=== PATIENT | male | born 1935 | race Caucasian/White ===

== ENCOUNTER 2017-04-16 18:30 | Inpatient (IN) | payer MEDICARE ==
[~2017-04-16] VITALS: Ht 175.3 cm; Wt 115.0 kg
--- NOTE | ~2017-04-16 | ECH ---
Transthoracic Echocardiography Report (TTE) Demographics Patient Name HALLIE GRACE SR Date of Study 04/18/2017 Patient Number [id number] Visit Number [id number] Date of 1935 Room Number 408 Accession Number [id number] Gender Male Age 81 year(s) Referring Willie Barcenas Break Off Worker Deborah Lr [facility] Physician Physician Interpreting Seun Blankenship Corporate Manager Physician Supervising Ordering Physician Sam Bailey MD/MLP Nurse Stress Child & Adolescent Psychiatrist Conclusions Contractility Score Summary Normal Left Ventricular contractility was noted. Summary Technically fair exam. The estimated left ventricular ejection fraction is 60-65%. Mild concentric left ventricular hypertrophy. Mildly dilated right ventricle with normal function. Mild-moderate mitral regurgitation by color Doppler. There is trivial aortic regurgitation by color Doppler. The ascending aorta appears mildly dilated. The maximum diameter measures 4.1 cm. Recommendation The patient was given the results of the exam during their hospital stay. Procedure Type of Study TTE procedure:Echo Complete SF. Procedure Date Date: 04/18/2017 Start: 10:02 AM Technical Quality: Adequate visualization Indications:Chest pain, Atrial fibrillation, Congestive heart failure and Coronary artery disease. Appropriate Use Criteria: 9 Height: 69 inches Weight: 253 pounds BSA: 2.28 m Rhythm: Atrial fibrillation HR: 84 bpm BP: 108/44 mmHg M-Mode/2D Measurements LV Diastolic Dimension: 5.39 cm LV Systolic Dimension: 3.08 cm LV Septum Diastolic: 1.19 cm LV PW Diastolic: 1.16 cm AO Root Dimension: 2.93 cm Cardiac Output: 6.74 l/min LA Dimension: 4.45 cm Cardiac Index: 2.96 l/min*m RV Diastolic Dimension: 3.58 cm LA volume index: 31 ml/m LVOT: 2.03 cm LVOT VTI: 24.8 cm RV Base: 4.47 cm LV Stroke volume: 80.23 ml RV Length: 6.69 cm LV Stroke volume index: 35.19 ml/m TAPSE: 3.1 cm Doppler Measurements AV Peak Velocity: 1.08 m/s MV Peak E-Wave: 1.24 m/s AV Peak Gradient: 4.67 mmHg AV Mean Gradient: 2.5 mmHg LVOT Peak Velocity: 1.15 m/s AV Area (Continuity):3.4 cm PV Peak Velocity: 1.04 m/s TR Velocity:2.35 m/s PV Peak Gradient: 4.33 mmHg TR Gradient:22.03 mmHg Estimated PASP: 25.03 mmHg Estimated RAP:3 mmHg Estimated RVSP: 25 mmHg RA Area: 21.04 cm Findings Left Ventricle The left ventricle is normal in size . Mild concentric left ventricular hypertrophy. Diastolic function indeterminate due to patient's arrhythmia. Right Ventricle Normal right ventricle structure and function. Mildly dilated right ventricle with normal function. Left Atrium Normal left atrial size. Right Atrium The right atrium is mildly dilated. Mitral Valve Mild-moderate mitral regurgitation by color Doppler. Normal mitral valve structure and function. Aortic Valve The aortic valve is mildly sclerotic. There is trivial aortic regurgitation by color Doppler. Tricuspid Valve Normal tricuspid valve structure and function. Mild tricuspid regurgitation by color Doppler. Pulmonic Valve Normal pulmonic valve structure and function. Pericardial Effusion No evidence of pericardial effusion. Miscellaneous The ascending aorta appears mildly dilated. The maximum diameter measures 4.1 cm. Pleural Effusion No evidence of pleural effusion. Contractility Score LV regional wall motion:(0-Non visualized 1-Normal 2-Hypokinesis 3-Akinesis 4-Dyskinesis 5-Aneurysm) Signature
--- NOTE | ~2017-04-16 | HP ---
ADMIT: 04/16/2017 RM/LOC: 408 [facility] MR#: [id number] [address] [place], [place] [address] HALLIE GRACE [address] [place] [address] History and Physical SEX: M AGE: 81 : 1935 DATE OF SERVICE: CHIEF COMPLAINT: Chest pain. HISTORY OF PRESENT ILLNESS: The patient is very pleasant 81-year-old gentleman, who has a past medical history of coronary artery disease, status post PCI at [facility] in the early ; history of recurrent stroke, on chronic anticoagulation; diabetes, who presents to [facility] emergency room with complaints of chest pain. The patient notes that he had actually been in to [facility] earlier this last week for a not regular INR, and was not feeling well, and they did an EKG and found that he was in atrial fibrillation with good rate control, since he was already anticoagulated, they sent him home. The patient noted some episodes of chest discomfort on , pretty severe, 8/10 at in nature, left chest maybe a little bit into his left armpit. He was not short of breath, nauseated, or diaphoretic. This happened at rest, and really had just may have been feeling a little under the weather, but otherwise he had no further chest pain until Tuesday when he had a longer symptom and with recurrent symptomatology of this. He was brought into the emergency room where the episode of pain did not go away until after he received nitroglycerin. The patient notes he has not had any pain since that time. He notes his exercise tolerance is not great, but it is more than anything secondary to his knee bothering him. He has to use a cane to get around. He notes he has not had a stress test or echocardiogram in quite some time, although he follows with Payton Carvalho at [facility]. The patient notes no recent medication changes and has been taking everything as directed. PAST MEDICAL HISTORY: 1. 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 2. Coronary artery disease, status post stenting per the patient in approximately 1992 or 1993 [facility]. 3. Obesity. 4. Diabetes mellitus type 2. 5. Hyperlipidemia. 6. Hypertension. 7. New onset atrial fibrillation, diagnosed March 2017. 8. GERD. 9. History of diabetic retinopathy. 10.History of hearing loss. 11.History of cataract. 12.BPH. 13.Depression with recent grief disturbance. 14.Tinnitus. ALLERGIES: NO KNOWN MEDICAL ALLERGIES. MEDICATIONS: Home medications include: 1. Atorvastatin. ADMIT: 04/16/2017 RM/LOC: 408 [facility] MR#: [id number] [address] [address] HALLIE GRACE [facility] [address] [address] History and Physical SEX: M AGE: 81 : 1935 2. Fish oil. 3. Enalapril. 4. Gabapentin. 5. Imdur. 6. Omeprazole. 7. Potassium. 8. Terazosin. 9. Trospium. 10.Carvedilol. 11.Vitamin D. 12.Coumadin. 13.Plavix. 14.NPH insulin. 15.Lasix. SOCIAL HISTORY: He is recently . Currently, living with family members. Current nonsmoker and nondrinker. FAMILY HISTORY: Noncontributory. REVIEW OF SYSTEMS: As noted above. All other systems are reviewed and are negative. PHYSICAL EXAMINATION: VITAL SIGNS: 99.1, 64, 18, 108/44, 99% on room air. LABORATORY DATA: Troponin was less than 0.015 on three separate sets. Hemoglobin 14.9, white count 6.5, and 159,000 platelets. Sodium is 141, potassium 4.4, BUN is 24, creatinine 1.3, bicarb is 27, chloride is 106. His blood sugar is 191. BNP was 2883. Chest x-ray shows no obvious airspace disease. EKG looks to be atrial fibrillation at 74 beats per minute. T-wave inversions noted in V1. Questionable right bundle. No acute ST or T-wave segment changes are noted. ASSESSMENT AND PLAN: 1. Chest pain, resolved. 2. History of known coronary disease, status post PCI, approximately in the early 90s. 3. Atrial fibrillation, overall new onset. 4. Chronic anticoagulation due to multiple cryptogenic strokes. 5. Diabetes mellitus type 2. ADMIT: 04/16/2017 RM/LOC: 408 [facility] MR#: [id number] [address] [address] HALLIE GRACE [address] [place] [address] History and Physical SEX: M AGE: 81 : 1935 6. Hyperlipidemia. 7. Hypertension. 8. Obesity. Overall right now, the patient is chest pain-free. Symptoms are certainly concerning based on the way he mentions that his exercise tolerance is overall limited with his prior strokes and knee problems. New onset atrial fibrillation is interesting, he needs an echo. His thyroid is pending. Also, probably needs an ischemic workup given the chest pain and his history of coronary disease. We will try to get that echocardiogram ordered. We will have [facility] stop to see the patient as he is an established patient with them. We will get him started on most of his home medications and follow him closely here as an inpatient. Leo Vargas MD/ morgan JOB #: [id number] CC: Lennox Tapia, Attending Physician Lennox Tapia, Family Physician
--- NOTE | 2017-04-17 01:40 | ER ---
ADMIT: 04/16/2017 RM/LOC: 408 [facility] MR#: [id number] [address] [place], [place] [address] HALLIE GRACE [address] [place] [address] Emergency Room Report SEX: M AGE: 81 : 1935 DATE: 04/16/2017 See T-sheet for complete H and P. ADDENDUM: An 81-year-old gentleman comes in complaining of left-sided chest pain that began 30 to 40 minutes prior to arrival. It is on the left side of his chest and into his axilla on the left side. He was sitting at that time when it began. He denies any shortness of breath, diaphoresis, or nausea with this. It is still present when he presents to the ER, but it is improving. He was seen in the clinic yesterday apparently by Dr. Tapia and was found to be in atrial fibrillation. The reason he went into the clinic visit is because he was having a little bit of pain similar to this but not as severe as the other day. Past medical history, he does have a history of newly diagnosed atrial fibrillation. He was already anticoagulated on Plavix and Coumadin for numerous CVAs and TIAs in the past. He has had a stent placed but that was back in 1999. His physical exam was unremarkable. See T-sheet for complete exam. EKG showed atrial fibrillation at a rate of 45 and on the monitor, he was mostly in the 60s and 70s while in the ER. His lab results shows that he had normal set of cardiac enzymes with a BNP is 2883. His electrolytes were normal. His CBC was normal and he was therapeutic at 2.32 on his INR. He did get a nitroglycerin and had relief of his pain and remained chest pain-free in the ER. I spoke to Dr. Vargas, who is on for the patient's primary care physician, who graciously agrees to bring the patient in for further workup of his chest pain. Layton Melgar MD/ morgan JOB #: [id number] CC: Lennox Tapia MD, Attending Physician Lennox Tapia MD, Family Physician
--- NOTE | 2017-04-19 06:48 | CO ---
ADMIT: 04/16/2017 RM/LOC: 408 [facility] MR#: [id number] [facility]#: [id number] [address] [place], [place] [address] HALLIE GRACE [address] [place] [address] Consultation SEX: M AGE: 81 : 1935 DATE OF CONSULTATION: 04/17/2017 ATTENDING PHYSICIAN: Lennox Tapia CONSULTING PHYSICIAN: Krzysztof Kohli MD REASON FOR CONSULTATION: Left axilla pain. HISTORY OF PRESENT ILLNESS: Hallie is a pleasant 81-year-old male, who has a history of LAD stent in November of 1999. He does not remember what type of symptoms he was having at that time. He states that he has had a twice a week INRs for the last 25 years given his history of stroke, he was placed on Coumadin at that time, and because of his difficult to control INRs, he has had to have it checked twice a week for that entire time. He states that on , he was going in to get his INR. He said that morning he had about 20 minutes of a sharp pain in his left axilla. He denies any shortness of breath or diaphoresis with it. He states it resolved on its own. He said he went in for his blood check and told the nurse that Dr. Tapia did talk to him and told him that he should go to the emergency room if he has recurrent pain. Yesterday afternoon, he said he had another episode of 15 to 20 minutes of this sharp left axilla pain. He says nothing seems to bring it on. He says initially nitroglycerin helped and then he did get some Maalox which also helped with the pain. He states he has continued to have intermittent pain since admission. He has had negative cardiac enzymes, and his EKG shows no ischemic changes. PAST MEDICAL HISTORY: 1. History for recently diagnosed atrial fibrillation. He has been on Coumadin long-term for his history of strokes. 2. History of multiple strokes in the s, so he has been on twice a week INR since that time. 3. History of coronary disease, status post stenting of his LAD in 1999. 4. History of peripheral vascular disease, status post stenting [place] [address] Adan. 5. History of diabetes. 6. History of hypertension. 7. History of hypercholesteremia. 8. History of obesity. PAST SURGICAL HISTORY: 1. History of appendectomy in 1955. 2. History of knee surgery in 1969. 3. History of ankle surgery in 1974. 4. History of stenting of his left SFA in 2006. ALLERGIES: NO KNOWN DRUG ALLERGIES. MEDICATIONS: 1. Furosemide 20 mg daily. ADMIT: 04/16/2017 RM/LOC: [address] [place] [address] MR#: [id number] [address] [address] HALLIE GRACE [facility] [address], [place] [address] Consultation SEX: M AGE: 81 : 1935 2. Insulin 42 units at bedtime, NPH at night and 44 units in the morning. 3. Plavix 75 mg daily. 4. Coumadin daily. 5. Vitamin D daily. 6. Carvedilol 25 mg twice a day. 7. Trospium 20 mg twice daily. 8. Terazosin 5 mg daily. 9. Potassium 10 mEq daily. 10.Omeprazole 20 mg daily. 11.Isosorbide mononitrate 60 mg daily. 12.Hypromellose twice daily p.r.n. 13.Gabapentin 300mg three tabs at bedtime. 14.Gabapentin 300 mg one capsule in the morning and one at noon. 15.Enalapril 5 mg daily. 16.Fish oil 1000 mg daily. 17.Atorvastatin 40 mg at bedtime. SOCIAL HISTORY: He lives with his daughter in [place]. Denies any smoking or alcohol use. FAMILY HISTORY: There is no family history of coronary artery disease. REVIEW OF SYSTEMS: GENERAL: He has had some fatigue. Denies any weight changes. Denies any fever, chills, sweats. EYES: He does have partial vision loss. Denies any history of cataracts or glaucoma. ENT: He does have some sinus congestion. Denies any decreased hearing. PULMONARY: He does have history of bronchitis. Denies history of COPD. He does have a cough. CARDIAC: As per HPI. GI: Denies any nausea, vomiting. He has had some difficulty swallowing with his prior stroke. : Denies dysuria, hematuria. NEUROLOGIC: Does have history of stroke and has been on Coumadin since last 25 years. He has been worked up at the [facility] when this originally presented. MUSCULOSKELETAL: He has arthritis and joint pains. He has history of ankle injury. ENDOCRINE: He does have history of diabetes. Denies any history of thyroid dysfunction, HEMATOLOGIC: Does have history of lung cancer in 1996. PSYCHIATRIC: Denies any anxiety or depression. All other systems reviewed and negative. PHYSICAL EXAMINATION: VITAL SIGNS: Blood pressure 137/67, pulse is 64 and irregular, respirations 18, temperature 97.6, oxygen 94% on room air. GENERAL: The patient is in no acute distress. He is alert and oriented. ADMIT: 04/16/2017 RM/LOC: 408 [facility] MR#: [id number] [address] [address] HALLIE GRACE [address], [place] [address] Consultation SEX: M AGE: 81 : 1935 HEENT: Normocephalic and atraumatic. Moist mucous membranes. NECK: Supple. There is no lymphadenopathy. No carotid bruits are auscultated. HEART: Irregularly irregular. No murmurs, rubs, or gallops. LUNGS: Clear to auscultation bilaterally. ABDOMEN: Obese and nontender. EXTREMITIES: No cyanosis, clubbing, or edema. VASCULAR: I guess 2+ dorsalis pedis pulses bilaterally, 2+ radials bilaterally, 2+ carotids bilaterally. SKIN: No rashes. MUSCULOSKELETAL: He does have some pain to palpation in his left axillary area that reproduces his discomfort. DIAGNOSTIC DATA: Troponin is negative. EKG shows atrial fibrillation with a right bundle-branch block. Creatinine is 1.3. INR is 2.3, troponin is less than 0.015. Chest x-ray was unremarkable. IMPRESSION AND PLAN: 1. Left axillary pain. This appears very atypical and his cardiac enzymes and EKG are unremarkable. It appears to be mostly musculoskeletal as it is reproduced with palpation. He does say that the nitroglycerin helped with the pain, however, also the Maalox helped with the pain also. At this point, we will do an echocardiogram in the morning. We will consider stress test in the future given his history of coronary artery disease. 2. Atrial fibrillation on Coumadin. His heart rate is controlled. TSH is okay. We will continue a rate control and anticoagulation strategy at this point, as he does not appear symptomatic. 3. History of coronary disease, status post PCI in 1999 to his LAD. 4. Diabetes mellitus. 5. History of stroke. 6. Hyperlipidemia. Thank you for allowing us to participate in the care of your patient. We will be in contact as his care progresses. Krzysztof Kohli MD/ morgan JOB #: [id number] CC: Lennox Tapia, Attending Physician Lennox Tapia, Family Physician Leo Vargas MD
[2017-04-19] MEDS ORDERED: LIPITOR DPS20 MG PO (11:24)
[2017-04-19] MEDS ORDERED: VASOTEC DPS5 MG PO (11:26)
[2017-04-19] MEDS ORDERED: OMEGA-3 DPS1000 MG PO (11:26)
[2017-04-19] MEDS ORDERED: NEURONTIN DPS300 MG PO ×2 (11:26→11:27)
[2017-04-19] MEDS ORDERED: IMDUR DPS60 MG PO (11:28)
[2017-04-19] MEDS ORDERED: PRILOSEC DPS20 MG PO (11:28)
[2017-04-19] MEDS ORDERED: PURE & GENTLE E15 ML OU (11:28)
[2017-04-19] MEDS ORDERED: MICRO-K DPS10 MEQ PO (11:28)
[2017-04-19] MEDS ORDERED: SANCTURA20 MG PO (11:29)
[2017-04-19] MEDS ORDERED: TERAZOSIN HCL5 MG PO (11:29)
[2017-04-19] MEDS ORDERED: VITAMIN D-32000 UNI1 PO (11:29)
[2017-04-19] MEDS ORDERED: COREG DPS12.5 MG PO (11:29)
[2017-04-19] MEDS ORDERED: PLAVIX75 MG PO (11:30)
[2017-04-19] MEDS ORDERED: COUMADIN10 MG PO (11:30)
[2017-04-19] MEDS ORDERED: NOVOLOG100 UNIT/2 SQ ×2 (11:31→11:32)
[2017-04-19] MEDS ORDERED: LASIX DPS20 MG PO (11:32)
--- NOTE | 2017-04-25 07:28 | DS ---
ADMIT: 04/16/2017 RM/LOC: 408 [facility] MR#: [id number] [address] [address] HALLIE GRACE [address] [place] [address] Discharge Summary SEX: M AGE: 81 : 1935 ADMISSION DATE: 04/16/2017 DISCHARGE DATE: 04/18/2017 DISCHARGE DIAGNOSIS: 1. Chest pain/axillary pain, resolved. 2. History of coronary artery disease, status post PCI (percutaneous coronary intervention) to the LAD (left anterior descending) in approximately the year 1999. 3. New onset A fib (atrial fibrillation). 4. Chronic anticoagulation. 5. History of multiple strokes. 6. Diabetes mellitus, type 2. 7. Hyperlipidemia. 8. Hypertension. 9. Obesity. 10.Questionable history of obstructive sleep apnea. CONSULTATIONS: Cardiology. PROCEDURES: None. REASON FOR ADMISSION: A very pleasant 81-year-old gentleman, multiple medical problems, presented to [facility] emergency room on the day admission with complaints of axillary and chest discomfort. He was also found to be in atrial fibrillation, which was recently diagnosed, and with these complaints, he was admitted for further evaluation and treatment. For complete details, please see H and P dictated on the day of admission. HOSPITAL COURSE: At the time of admission, the patient was placed in a monitored bed. He underwent monitoring with serial cardiac enzymes and EKGs. He ruled out from a cardiac standpoint. With a new onset of atrial fibrillation, he had remained anticoagulated. Cardiology was asked to see the patient. He underwent an echocardiogram that really showed, on verbal report, no obvious abnormalities. With his history of coronary disease and this discomfort, certainly does need further ischemic workup, especially with the ADMIT: 04/16/2017 RM/LOC: 408 [facility] MR#: [id number] [address] [place], [place] [address] HALLIE GRACE [address] [place] [address] Discharge Summary SEX: M AGE: 81 : 1935 new atrial fibrillation. He had been a little bradycardic. His carvedilol was decreased to 12.5 b.i.d., and there were also plans for an outpatient Zio patch. The patient ambulated and ate without difficulty and was thought to be ready for discharge home on 04/18/2017. His discharge medications are found on his discharge medication list. The only real change there is a decreased in his carvedilol to 12.5 twice a day. He will continue with the rest of his medications as current. His diet is a cardiac ADA as tolerated. His activity is as tolerated. He will have followup with the [facility] in the next couple weeks. He will also follow up with Dr. Tapia at [facility] for his regularly scheduled protime. Leo Vargas MD/ leo JOB #: [id number] CC: Lennox Tapia MD, Attending Physician Lennox Tapia MD, Family Physician Lennox Tapia MD
[2017-05-28] MEDS ORDERED: DITROPAN XL10 MG PO (13:20)
[2017-05-28] MEDS ORDERED: CORDARONE DPS200 MG PO (13:20)
[2017-05-28] MEDS ORDERED: HYTRIN5 MG PO ×2 (13:20→13:22)
[2017-05-28] MEDS ORDERED: ATORVASTATIN CA40 MG PO (13:20)
[2017-05-28] MEDS ORDERED: NEURONTIN DPS300 MG PO (13:21)
[2017-05-28] MEDS ORDERED: GENTEAL MILD15 ML OU (13:21)
[2017-05-28] MEDS ORDERED: IMDUR DPS60 MG PO ×2 (13:21→13:22)
[2017-05-28] MEDS ORDERED: SENOKOT S1 TAB PO (13:22)
[2017-05-28] MEDS ORDERED: TYLENOL EXTRA500 M1 PO (13:22)
[2017-05-28] MEDS ORDERED: COUMADIN10 MG PO (13:23)
[2017-05-28] MEDS ORDERED: VITAMIN D-32000 UNI1 PO (13:23)
[2017-05-28] MEDS ORDERED: COREG DPS6.25 MG PO (13:23)
[2017-05-28] MEDS ORDERED: HUMULIN N100 UNIT/1 SQ ×2 (13:24)
[2017-05-28] MEDS ORDERED: ULTRAM DPS50 MG PO (13:24)
[2017-05-28] MEDS ORDERED: FOLTX TABLET1 EACH PO (13:24)
[2017-05-28] MEDS ORDERED: ASCORBIC ACID500 MG PO (13:25)
[2017-05-28] MEDS ORDERED: FEOSOL-DPS325 MG PO (13:25)
[2017-05-28] MEDS ORDERED: MAALOX DPS30 ML PO (13:25)
[2017-05-28] MEDS ORDERED: MELATONIN3 MG PO (13:26)
[2017-07-09] MEDS ORDERED: COUMADIN7.5 MG PO (12:48)
[2017-07-09] MEDS ORDERED: TEARS NATURAL D15 ML OU (12:55)
[2017-07-09] MEDS ORDERED: ACETYLCYST100 MG/1 M IH (12:55)
[2017-07-09] MEDS ORDERED: COLACE-DPS100 MG PO (12:55)
[2017-07-09] MEDS ORDERED: DUONEB DPS3 ML IH (12:55)
[2017-07-09] MEDS ORDERED: DULCOLAX-DPS10 MG PR (12:56)
[2017-07-09] MEDS ORDERED: GLUCAGON EMERGEN1 MG IM (12:56)
[2017-07-09] MEDS ORDERED: MIRALAX PACKET17 GM PO (12:57)
[2017-07-09] MEDS ORDERED: IODOSORB TP (12:57)
[2017-07-09] MEDS ORDERED: MACRODANTIN DPS50 MG PO (12:57)
[2017-07-09] MEDS ORDERED: NOVOLOG FL100 UNIT/1 SQ (12:59)
== END 2017-04-18 14:03 | disposition home or self-care (01) | DRG 313 ==
LOC: ER 18:30 → 4PCU 20:00 → EDBD 04-18 14:03 → 4PCU 04-18 14:03
PROVIDERS: ADMIT Internal Medicine
DX: R07.89 Other chest pain (principal); I25.10 Atherosclerotic heart disease of native coronary artery without angina pectoris; I48.91 Unspecified atrial fibrillation; E11.319 Type 2 diabetes mellitus with unspecified diabetic retinopathy without macular edema; E66.9 Obesity, unspecified; Z68.37 Body mass index [BMI] 37.0-37.9, adult; G47.33 Obstructive sleep apnea (adult) (pediatric); E78.5 Hyperlipidemia, unspecified; I10 Essential (primary) hypertension; E78.00 Pure hypercholesterolemia, unspecified; F32.9 Major depressive disorder, single episode, unspecified; H93.19 Tinnitus, unspecified ear; N40.0 Benign prostatic hyperplasia without lower urinary tract symptoms; K21.9 Gastro-esophageal reflux disease without esophagitis; Z95.5 Presence of coronary angioplasty implant and graft; Z86.73 Personal history of transient ischemic attack (TIA), and cerebral infarction without residual deficits; Z79.01 Long term (current) use of anticoagulants; Z79.4 Long term (current) use of insulin; Z85.118 Personal history of other malignant neoplasm of bronchus and lung

== ENCOUNTER 2017-05-04 17:25 | Inpatient (IN) | payer MEDICARE ==
[~2017-05-04] VITALS: Ht 175.3 cm; Wt 119.0 kg
--- NOTE | ~2017-05-04 | WND ---
ADMIT: 05/04/2017 RM/LOC: 521 [facility] MR#: [id number] [address] [address] HALLIE GRACE [address] [place] [address] Wound Care Clinic SEX: M AGE: 82 : 1935 DATE OF VISIT: 05/09/2017 DIAGNOSES: Left heel ulcer and buttock ulcer. HISTORY OF PRESENT ILLNESS: Hallie is an 82-year-old male, who was admitted on May 04, 2017, after falling coming off a stool and landing on his left hip. He was seen in the Emergency Room in [place] and transferred to [facility] for repair. He is status post left bipolar hemiarthroplasty on 05/05/[address] Dhaliwal. He is being seen today by Wound Care for an ulcer to his left heel and an ulcer to his coccyx. PAST MEDICAL HISTORY: 1. History of stroke. 2. Hearing loss. 3. Tinnitus. 4. Visual loss. 5. Diabetic retinopathy. 6. Diabetes type 2, on insulin. 7. Hyperlipidemia. 8. History of ischemic heart disease. 9. Atrial fibrillation. MEDICATIONS: 1. Coumadin. 2. Hytrin. 3. Prilosec. 4. Imdur. 5. Gabapentin. 6. Furosemide. 7. Enalapril. 8. Clopidogrel. 9. Carvedilol. 10.Atorvastatin. 11.NPH insulin. FAMILY HISTORY: Noncontributory. SOCIAL HISTORY: He is and living with family members. He denies any history of tobacco use. REVIEW OF SYSTEMS: A 13-point review of systems was negative other than that stated in the HPI. PHYSICAL EXAMINATION: Assessment of his left heel reveals a 4.5 cm long x 4 cm wide purple boggy tender area. There is no periwound erythema. No drainage is noted. He has a 1+ dorsalis pedis pulse. He has no edema noted to the left lower extremity. Assessment of his coccyx area reveals a linear slit in his gluteal cleft that ADMIT: 05/04/2017 RM/LOC: 521 [facility] MR#: [id number] [address] [address] HALLIE GRACE [address] [place] [address] Wound Care Clinic SEX: M AGE: 82 : 1935 is 2.5 cm in length x 0.2 cm in width x 0.1 cm in depth. There is no drainage noted. Wound bed is pink. No periwound erythema. ASSESSMENT: 1. Deep tissue injury to left heel. Skin prep the left heel daily and completely offload the area. 2. Linear slit in gluteal cleft. PLAN: Apply Sensi-Care to the linear slit in gluteal cleft 4 times daily and as needed. Staff needs to be very careful when they do any enid-care that they are not spreading his buttocks too far apart as this will increase the sides of linear slit in the gluteal cleft. Wound Care will continue to follow while the patient is in the hospital. He is anticipating discharge in the next day or two. I would like to thank Dr. Tapia for allowing us to participate in Hallie' care. Stacey Xavier, SHARRON/ morgan JOB #: [id number] CC: Lennox Tapia, Attending Physician Lennox Tapia, Family Physician
--- NOTE | ~2017-05-04 | CO ---
ADMIT: 05/04/2017 RM/LOC: 1 [facility] MR#: [id number] [facility] [address] [address] HALLIE GRACE [address] [place] [address] Consultation Report SEX: M AGE: 82 : 1935 Corrected: 05/05/2017 0651 njv DATE OF CONSULTATION: 05/04/2017 ATTENDING PHYSICIAN: Lennox Tapia CONSULTING PHYSICIAN: Layton Dhaliwal MD CHIEF COMPLAINT: Left hip fracture. HISTORY: This is an 82-year-old male who had a mechanical fall from standing at home today and landing on the left hip. Went to an outside facility. He was found to have a left femoral neck fracture. He was sent here for definitive evaluation and treatment. He did not have any head trauma, and he just has complaints of pain in that left hip, otherwise he is doing just fine. REVIEW OF SYMPTOMS: Otherwise negative. PAST MEDICAL HISTORY: He has a past heart history with CHF, past heart attacks, diabetes, hypertension. He also has right knee arthritis. SOCIAL HISTORY: Does not smoke. OBJECTIVE: VITAL SIGNS: Stable, afebrile. GENERAL: He is awake, alert, oriented. He is not in any acute distress. HEART: He is hypertensive, he has a regular rate and rhythm. He has no labored breathing. EXTREMITIES: Left lower extremity is a little bit shortened and externally rotated compared to the right hip, pain with log roll. Skin is intact over the hip. He has brisk capillary refill in the toes. Sensation intact to light touch throughout the foot, and he is able has positive EHL and FHL. ADMIT: 05/04/2017 RM/LOC: 1 [facility] MR#: [id number] [address] [address] HALLIE GRACE [address] [place] [address] Consultation Report SEX: M AGE: 82 : 1935 DIAGNOSTIC DATA: X-rays shows a displaced left femoral neck fracture. His labs consistent with an INR of 2.2. Hemoglobin and hematocrit were normal. Elevated glucose, otherwise nothing concerning. ASSESSMENT: An 82-year-old with a left femoral neck fracture. PLAN: He will be admitted to the primary care service and then will be preoperatively cleared. They will begin working on reversing his INR, and we will plan on doing surgery for a left hip hemiarthroplasty tomorrow. Layton Dhaliwal MD/ diane JOB #: [id number] CC: Lennox Tapia, Attending Physician Lennox Tapia, Family Physician Corrected: 05/05/2017 0651 [email or web address]
[~2017-05-04 17:25] MED LIST: COREG DPS12.5 MG PO; COUMADIN10 MG PO; IMDUR DPS60 MG PO; LASIX DPS20 MG PO; LIPITOR DPS20 MG PO; MICRO-K DPS10 MEQ PO; NEURONTIN DPS300 MG PO; NOVOLOG100 UNIT/2 SQ; OMEGA-3 DPS1000 MG PO; PLAVIX75 MG PO; PRILOSEC DPS20 MG PO; PURE & GENTLE E15 ML OU; SANCTURA20 MG PO; TERAZOSIN HCL5 MG PO; VASOTEC DPS5 MG PO; VITAMIN D-32000 UNI1 PO
--- NOTE | 2017-05-06 08:06 | OR ---
ADMIT: 05/04/2017 RM/LOC: 521 [facility] MR#: [id number] [facility]#: [id number] [address] [address] HALLIE GRACE [address] [place] [address] Operative/Delivery Room Report SEX: M AGE: 82 : 1935 SURGERY DATE: 05/05/2017 SURGEON: Layton Dhaliwal MD BOTTLE CAPPER: Julio Street PA-C PREOPERATIVE DIAGNOSIS: Left displaced femoral neck fracture. POSTOPERATIVE DIAGNOSIS: Left displaced femoral neck fracture. PROCEDURE PERFORMED: A left bipolar hemiarthroplasty. BLOOD LOSS: 100 mL. IMPLANTS: DePuy Tri Lock size 8 stem, 1-1/2 offset neck, and a 57 head. COMPLICATIONS: None. ANESTHESIA: General. INDICATION: Hallie is an 82-year-old male, who had a mechanical fall from standing yesterday, suffering a femoral neck fracture. He was sent here for definitive care. He was on Plavix and Coumadin. He had his INR reversed and held his Plavix and was offered surgery for today. After discussing the risks, benefits of all the options, he wanted to go ahead with a bipolar hemiarthroplasty. DESCRIPTION OF PROCEDURE: The patient was identified in the preoperative holding area. Written informed consent was confirmed, site was marked. Brought to the OR, placed supine. General anesthesia was induced. He was then put on the OR table in the lateral decubitus position with the left hip up. All bony prominences were well padded. We prepped and draped in the usual sterile fashion. A time-out was performed. Preoperative antibiotics were confirmed. I began making an incision directly over the trochanter tip, and I went through the skin, subcutaneous tissue, got hemostasis, cleared off the IT band. This was incised and then cut with a scissor proximally and distally. Put a Charnley retractor and identified the vastus and then made it one continuous flap with the anterior 1/3 of the vastus, anterior 1/3 of the medius with the minimus and the capsule exposing the femoral neck. Once I got there exposing the neck and the fracture site, it was evident it was not going to have good access to the femoral head with that, so I went ahead and made my revision of the femoral neck cut cutting about a centimeter above the lesser. I cut that and removed the neck and then got a corkscrew into the femoral head and got that out. We measured that on the back table, it actually measured to a 58, and then irrigated copiously with normal saline. Got all the little bone fragments out of there, then took a [employer] cutter and then kind of opened up and then started rasping. I kind of got it wedged in sort of the anterior part of the femoral neck and got it real stable, a nice snug fit with an 8 in there, and I again kind of rasped out a little bit ADMIT: 05/04/2017 RM/LOC: 521 [facility] MR#: [id number] [address] [address] HALLIE GRACE [address] [place] [address] Operative/Delivery Room Report SEX: M AGE: 82 : 1935 anterior. It was not in anatomic perfect position for that, but it was very good, a nice snug fit, and I was real happy with kind of the stability and the toggle and kind of where it sat ultimately with its version. So, we then placed our final size 8 stem in from the Tri Lock an then placed our femoral head (they do not have a 58; they only have a 57 or a 59). I went with the 57. We put that on, impacted it in place and then located the hip. This had a real nice stable feel to it and good toggle. We then irrigated again with normal saline and then closed with #5 Tycron and a pursestring suture for the minimus and capsule layer and then came in through a bone tunnel going proximally and then from proximal to distal through the medius layer and then tied that down with a buried stitch and then used a #1 Vicryl for a couple of [id number] for the vastus layer. After that, we used some 2-0 Vicryl and 0-Vicryl for the subcu and then kristi for the skin. He was then extubated, brought to the postoperative care unit in good condition. No complications. Postoperatively, he will continue weightbearing as tolerated. PT/OT, pain control, and resuming his anticoagulation per primary care. Layton Dhaliwal MD/ diane JOB #: [id number] CC: Lennox Tapia, Attending Physician Lennox Tapia, Family Physician
--- NOTE | 2017-05-06 08:36 | HP ---
ADMIT: 05/04/2017 RM/LOC: 521 [facility] MR#: [id number] [address] [place], [place] [address] HALLIE GRACE [address] [place] [address] History and Physical SEX: M AGE: 82 : 1935 Corrected: 05/04/2017 1820 ajf DATE OF SERVICE: CHIEF COMPLAINT: Hip pain. HISTORY OF PRESENT ILLNESS: The patient is a very pleasant 82-year-old gentleman, well known to the office, who normally sees Dr. Tapia, who reportedly was catching his grandson coming off a stool or something today, but he fell and landed on his left hip. Found to have fracture. Was seen in outside ER at [place]. Continues to have severe pain there. Otherwise, he had been hospitalized a couple weeks ago for some chest pain type symptoms. He has had an interim stress test. This was negative. His symptoms have resolved, have not recurred. He has really been feeling quite well. No recent fevers, chills, nausea, or vomiting. No major severe shortness of breath. No new edema. Diabetes has been reasonably well controlled without any major hypoglycemia. He usually gets his INR twice weekly due to severe derangements of his INR and prior strokes with any subtherapeutic INRs, and this has been relatively stable for him he states. PAST MEDICAL HISTORY: 1. History of stroke. 2. Hearing loss. 3. Tinnitus. 4. Visual loss. 5. Diabetic retinopathy. 6. Diabetes type 2, on insulin. 7. Hyperlipidemia. 8. History of ischemic heart disease. 9. Atrial fibrillation. MEDICATIONS: He is on: 1. Coumadin. 2. Hytrin. 3. Prilosec. 4. Imdur. 5. Gabapentin. 6. Furosemide. 7. Enalapril. 8. Clopidogrel. 9. Carvedilol. 10.Atorvastatin. 11.NPH insulin. Please see list for full details. FAMILY HISTORY: Reviewed and noncontributory. SOCIAL HISTORY: Recently since December. Living with his daughter. Nonsmoker. ADMIT: 05/04/2017 RM/LOC: 521 [facility] MR#: [id number] 26[address] [facility] [address] [place], [place] [address] [address]LO[address] [place] [address] History and Physical SEX: M AGE: 82 : 1935 REVIEW OF SYSTEMS: As per HPI. Otherwise, completely reviewed and negative. PHYSICAL EXAMINATION: VITAL SIGNS: Blood pressure currently is 196/100, O2 saturation 98% on room air. Pulse is 94. Afebrile. GENERAL: He is alert and oriented x3. No acute distress. A little hard of hearing. Pleasant as always. HEENT: Normocephalic, atraumatic. Pupils are equal, round, and reactive to light and accommodation. Extraocular muscles intact. Moist mucous membranes. NECK: No lymphadenopathy. Soft, supple. Trachea midline. LUNGS: Clear to auscultation bilaterally. No wheezes, rales, or rhonchi. HEART: Regular rate and rhythm. No murmurs, rubs, or gallops. Distant. ABDOMEN: Soft, nontender, nondistended. Bowel sounds present. EXTREMITIES: No cyanosis or clubbing. He has 2+ lower extremity edema equal bilaterally. SKIN: He has bruises throughout of various ages. Nothing new. MUSCULOSKELETAL: Has 5/5 strength in bilateral upper extremities. Does not move his left lower extremity obviously due to his hip fracture. NEUROLOGICAL: No focal deficits noted other than decreased sensation in bilateral lower extremities, vague. LABORATORY AND X-RAY DATA: PT/INR is 2.24. X-ray shows fracture to the right femoral neck. CT of his head shows an old infarct. Sodium 143, potassium 4.1, carbon dioxide 33.9. AST and ALT within normal limits. Creatinine is 0.93. Hemoglobin is normal at 15.2, white count 12.82, platelets 156. EKG shows right bundle-branch block. No acute findings otherwise. Sinus rhythm. ASSESSMENT: 1. Acute hip fracture. 2. History of stroke. 3. Diabetes type 2, on insulin. 4. Coronary artery disease. 5. Hypertension. ADMIT: 05/04/2017 RM/LOC: 521 [facility] MR#: [id number] [address] [address] HALLIE GRACE [address] [place] [address] History and Physical SEX: M AGE: 82 : 1935 PLAN: At this point in time, we will try to keep him euvolemic. We will give him some IV vitamin K to reverse his INR. We will try to keep him minimized for his reversal as possible given his history of recurrent strokes in the past. We will likely start Lovenox to bridge upward postop day #1 or #2, we will see how he does. He has been on Plavix, however, so his bleeding risk is higher. Orthopedic Surgery consult obviously. It is anticipated he will be ready for the OR in the next day or two but I would prefer not to put him on some FFP to try to keep him euvolemic. We will otherwise monitor his blood sugars and his blood pressures throughout. Give him some pain control. The patient is agreeable to this. Noé Vyas MD/ morgan JOB #: [id number] CC: Lennox Tapia, Attending Physician Lennox Tapia, Family Physician Corrected: 05/04/2017 1820 [email or web address]
--- NOTE | 2017-05-14 17:59 | ER ---
ADMIT: 05/04/2017 RM/LOC: 521 [facility] MR#: [id number] [address] [place], [place] [address] HALLIE GRACE [address] [place] [address] Emergency Room Report SEX: M AGE: 82 : 1935 DATE: 05/04/2017 PRIMARY CARE: Lennox Tapia MD BRIEF ADDENDUM: Please see my T-sheet for complete review of systems, past medical history, and physical exam. CHIEF COMPLAINT: Left hip pain. HISTORY OF PRESENT ILLNESS: This is an 82-year-old white male, transferred to [facility] from [facility] in [place] for further management of a left femoral neck fracture. The patient states he was at home today around 12:45. He was behind his grandson who was on top of a stool reaching for something out of a cabinet when he began to lose his balance and fell onto him and they both fell to the ground. He fell on his left hip. Had immediate left hip pain, inability to bear weight. Secondarily transferred to [facility] for evaluation. He is on Coumadin and Plavix for multiple MIs and CVAs. They did CT his head today, negative for any intracranial hemorrhages. X-ray significant for left femoral neck fracture. The patient denies any loss of consciousness. He is currently taking his medications as prescribed. Does admit to some difficulty urinating secondary to BPH, otherwise feels well. He has required multiple pain medications to get pain under control. He is quite hypertensive upon admission running well over the 200 systolically. PAST MEDICAL HISTORY: Atrial fibrillation; coronary artery disease; type 2 diabetes, on insulin; hypertension; and multiple CVAs. COURSE IN THE EMERGENCY ROOM: The patient was seen and examined, afebrile, nontoxic, in a mild amount of distress secondary to the pain. He is alert and cooperative with exam. Foot has good pulses distally. 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 Leg has some chronic stasis changes. Hip is diffusely tender. Left groin region difficulty with movements, it is externally rotated, however, not shorten. Chest is clear to auscultation. Equal breath sounds bilaterally. Heart has regular rate and rhythm. He was given 50 mcg of fentanyl for pain control while in the department. He did get a urine, chest x-ray, and EKG. EKG unremarkable, somewhat prolonged SC interval no ST-T or Q- wave abnormalities. I did call Dr. Vyas on for Dr. Tapia today who saw the patient, admitted to med/surg. I also spoke to Dr. Dhaliwal, made him aware that the patient had arrived in stable condition. He will see the patient ADMIT: 05/04/2017 RM/LOC: 521 [facility] MR#: [id number] [address] [address] HALLIE GRACE [address], [place] [address] Emergency Room Report SEX: M AGE: 82 : 1935 later once he is to the floor. IMPRESSION: 1. Left femoral neck fracture. 2. Anticoagulated with Coumadin secondary to atrial fibrillation, multiple strokes. 3. Hypertension. 4. Diabetes type 2, on insulin. DISPOSITION: The patient will be admitted to the care of Dr. Vyas for Dr. Tapia. Consult Dr. Dhaliwal for possible surgical intervention tomorrow. The patient was discharged to the floor in stable condition. VIKAS Gandara / Layton Melgar MD / morgan JOB #: [id number] CC: Lennox Tapia MD, Attending Physician Lennox Tapia MD, Family Physician
[2017-05-28] MEDS ORDERED: HYTRIN5 MG PO ×2 (13:20→13:22)
[2017-05-28] MEDS ORDERED: ATORVASTATIN CA40 MG PO (13:20)
[2017-05-28] MEDS ORDERED: CORDARONE DPS200 MG PO (13:20)
[2017-05-28] MEDS ORDERED: DITROPAN XL10 MG PO (13:20)
[2017-05-28] MEDS ORDERED: IMDUR DPS60 MG PO ×2 (13:21→13:22)
[2017-05-28] MEDS ORDERED: GENTEAL MILD15 ML OU (13:21)
[2017-05-28] MEDS ORDERED: NEURONTIN DPS300 MG PO (13:21)
[2017-05-28] MEDS ORDERED: SENOKOT S1 TAB PO (13:22)
[2017-05-28] MEDS ORDERED: TYLENOL EXTRA500 M1 PO (13:22)
[2017-05-28] MEDS ORDERED: VITAMIN D-32000 UNI1 PO (13:23)
[2017-05-28] MEDS ORDERED: COREG DPS6.25 MG PO (13:23)
[2017-05-28] MEDS ORDERED: COUMADIN10 MG PO (13:23)
[2017-05-28] MEDS ORDERED: HUMULIN N100 UNIT/1 SQ ×2 (13:24)
[2017-05-28] MEDS ORDERED: ULTRAM DPS50 MG PO (13:24)
[2017-05-28] MEDS ORDERED: FOLTX TABLET1 EACH PO (13:24)
[2017-05-28] MEDS ORDERED: ASCORBIC ACID500 MG PO (13:25)
[2017-05-28] MEDS ORDERED: FEOSOL-DPS325 MG PO (13:25)
[2017-05-28] MEDS ORDERED: MAALOX DPS30 ML PO (13:25)
[2017-05-28] MEDS ORDERED: MELATONIN3 MG PO (13:26)
--- NOTE | 2017-06-01 14:15 | CO ---
ADMIT: 05/04/2017 RM/LOC: 521 [facility] MR#: [id number] [address] [address] HALLIE GRACE [address] [place] [address] Consultation SEX: M AGE: 82 : 1935 DATE OF CONSULTATION: 05/06/2017 ATTENDING PHYSICIAN: Lennox Tapia CONSULTING PHYSICIAN: Paddy Boyle MD CHIEF COMPLAINT: Zio patch results with significant pauses. HISTORY OF PRESENT ILLNESS: The patient is an 82-year-old male with a past medical history of coronary artery disease, persistent atrial fibrillation, history of multiple strokes, type 2 diabetes mellitus, and hypertension, who suffered a mechanical fall resulting in hip fracture. He is postop day #1 from bipolar hemiarthroplasty of the left hip and consultation was asked due to an outpatient Zio patch result that showed sick sinus syndrome with pauses as long as 8 seconds in duration. The patient maintains that his hip fracture was due to a mechanical fall when he got sort of tangled up with his great grandson and fell to the ground from a standing position. He denies any recent heart palpitations, chest discomfort, shortness of breath, presyncope, or syncope. The daughter reports that he does have intermittent dizzy spells. He was inpatient about a month ago due to chest pain that was atypical in nature and had a stress test which was negative. He had biweekly INRs for his chronic Coumadin therapy from cerebrovascular accident, and was in the office when he reported he did not feel well. He had EKG which found atrial fibrillation. For this reason, a Zio patch was placed which found he was in sick sinus syndrome. Since he has been in the hospital, he has had no events on telemetry. PAST MEDICAL HISTORY: 1. Recently diagnosed atrial fibrillation, on Coumadin. 2. History of multiple cerebrovascular accidents, on Coumadin and Plavix. 3. History of coronary artery disease, most recently in post LAD stent in 2009. 4. History of peripheral vascular disease, status post stenting in 2006. 5. History of type 2 diabetes mellitus, on insulin. 6. History of hypertension. 7. History of hypercholesterolemia. 8. History of obesity. PAST SURGICAL HISTORY: Appendectomy, knee arthroscopy, ankle surgery, left SFA stent, percutaneous coronary intervention. ALLERGIES: NO KNOWN MEDICAL ALLERGIES. MEDICATIONS: 1. Atorvastatin 40 mg p.o. at bedtime. 2. Fish oil 1000 mg p.o. daily. 3. Enalapril 2.5 mg p.o. daily. 4. Gabapentin 300 mg p.o. b.i.d. and 900 mg at bedtime. 5. Isosorbide mononitrate 60 mg p.o. daily. ADMIT: 05/04/2017 RM/LOC: 521 [facility] MR#: [id number] [address] [address] HALLIE GRACE [address] [place] [address] Consultation SEX: M AGE: 82 : 1935 6. Omeprazole 20 mg p.o. daily. 7. Potassium chloride 10 mEq p.o. daily. 8. Terazosin 5 mg p.o. at bedtime. 9. Trospium 20 mg p.o. b.i.d. 10.Carvedilol 25 mg p.o. b.i.d. 11.Vitamin D3, 2000 International Units p.o. daily. 12.Coumadin 10 mg p.o. daily. 13.Plavix 75 mg p.o. daily. 14.NPH insulin subcutaneous b.i.d. 15.Furosemide 20 mg p.o. daily. SOCIAL HISTORY: The patient is recently in the last few months. He is currently living with his daughter in [place], [place]. He denies any tobacco or alcohol use. FAMILY HISTORY: There is no family history of coronary artery disease. REVIEW OF SYSTEMS: GENERAL: The patient has no chronic fatigue today. Denies any weight changes, fever, chills, or night sweats. EYES: The patient has chronic partial vision loss and is complaining of increased blurry vision since his hip repair, thought to be secondary to hyperglycemia. Denies any history of cataracts or glaucoma. EARS, NOSE, AND THROAT: He denies any decreased hearing or sinusitis at this time. PULMONARY: The patient has a history of bronchitis, but denies COPD. CARDIAC: As per the HPI. GI: Denies any nausea, vomiting, but does have some intermittent difficulty swallowing subsequent to prior cerebrovascular accident. : Denies any dysuria or hematuria. NEUROLOGIC: The patient has history of multiple strokes and has been on anticoagulation for the past 25 years. MUSCULOSKELETAL: The patient has chronic bilateral knee arthritis and now has left hip pain after a fracture with mechanical fall. ENDOCRINE: The patient has type 2 diabetes mellitus, on insulin. He denies any history of thyroid disease. HEMATOLOGIC: The patient has a reported history of lung cancer. PSYCHIATRIC: He denies any current anxiety or depression. PHYSICAL EXAMINATION: VITAL SIGNS: 99.7, 102-120, 118/57, 16, and 94% on room air. SKIN: [place], warm and dry. EYES: Sclerae clear. No xanthelasmas. ENT: Oral mucosa is pink and moist. No jugular venous distention or carotid bruits. CHEST: Respirations are even and unlabored. Lungs are clear to auscultation. HEART: Irregularly irregular rhythm without murmur, rub, or gallop. ABDOMEN: Obese, nontender to palpation. Bowel sounds present. MUSCULOSKELETAL: Gait is normal. ADMIT: 05/04/2017 RM/LOC: 521 [facility] MR#: [id number] [facility] [address] [address] [place] HALLIE Abraham [address] [place] [address] Consultation SEX: M AGE: 82 : 1935 EXTREMITIES: Without cyanosis, clubbing, or edema. Dressing on left hip. PSYCHIATRIC: Alert and oriented. Mood and affect are appropriate. DIAGNOSTIC DATA: Creatinine 1.3. INR 1.15. Hemoglobin 13.0. EKG, atrial fibrillation with controlled rate. ASSESSMENT AND PLAN: 1. Sick sinus syndrome. 2. Postop day #1, status post left bipolar hemiarthroplasty secondary to fracture. 3. Persistent atrial fibrillation. 4. Coronary artery disease, status post stent in his LAD in 1999. 5. Type 2 diabetes mellitus, on insulin. 6. History of multiple cerebrovascular accident, on Coumadin and Plavix. 7. Right bundle-branch block. PLAN: Discussed with the patient that due to the sick sinus syndrome detected on Zio patch he would benefit from pacemaker placement. As he has had no events on telemetry this hospitalization, there is no urgency for this intervention, and it is expected he would do better if he were to rehabilitate his left hip fracture before another procedure. We will continue to follow patient as an inpatient and help to coordinate this intervention. The patient is on a small dose of Coreg, so we will hold that at this time, as it could have an effect on his sick sinus syndrome. Natasha Hendrickson MD Resident / Paddy Boyle MD / morgan JOB #: [id number] CC: Lennox Tapia, Attending Physician Lennox Tapia, Family Physician
--- NOTE | 2017-06-01 17:51 | DS ---
ADMIT: 05/04/2017 RM/LOC: 1 [facility] MR#: [id number] [address] [address] [place] [address] Discharge Summary SEX: M AGE: 82 : 1935 ADMISSION DATE: 05/04/2017 DISCHARGE DATE: 05/10/2017 CONSULTATIONS: 1. Layton Dhaliwal MD, with Orthopedic Surgery. 2. Paddy Boyle MD, with Cardiology. PROCEDURES: ORIF of hip. FINAL DIAGNOSES: 1. Postop left bipolar hip. 2. Sick sinus syndrome. 3. Diabetes mellitus type 2. 4. BPH (benign prostatic hypertrophy). 5. Urinary retention. 6. Pressure ulcers. 7. Postoperative pain. REASON FOR ADMISSION: Please see H and P dictated by Dr. Vyas. However, briefly, Hallie Grace fell and broke his left hip. HOSPITAL COURSE: Admitted to the service of [facility] under the care of Dr. Vyas. He receives early goal-directed therapy and appropriate consultations. Care was transitioned to myself. He does rehab nicely with various interventions for postoperative pain as well as management of his chronic disease. He is ultimately discharged to the IRU. He will complete rehab in the IRU and follow up with Cardiology, and they will proceed with pacemaker placement secondary to sick sinus syndrome. DISPOSITION: IRU. ADMIT: 05/04/2017 RM/LOC: 1 [facility] MR#: [id number] [address] [place] [address] [place] [address] Discharge Summary SEX: M AGE: 82 : 1935 DISCHARGE CONDITION: Stable. DISCHARGE MEDICATIONS: See medication reconciliation, it is reviewed and accurate. DISCHARGE INSTRUCTIONS: Discharged to the IRU, complete rehab. Upon completion of rehab, we will go ahead and arrange to have a pacemaker secondary to sick sinus syndrome. Discussed the plan with the patient, expressed agreement, and had no further questions. Thirty minutes spent on discharge activities of this patient. Lennox Tapia MD/ ajf JOB #: [id number] CC: Lennox Tapia MD, Attending Physician Lennox Tapia MD, Family Physician
[2017-07-09] MEDS ORDERED: COUMADIN7.5 MG PO (12:48)
[2017-07-09] MEDS ORDERED: DUONEB DPS3 ML IH (12:55)
[2017-07-09] MEDS ORDERED: TEARS NATURAL D15 ML OU (12:55)
[2017-07-09] MEDS ORDERED: COLACE-DPS100 MG PO (12:55)
[2017-07-09] MEDS ORDERED: ACETYLCYST100 MG/1 M IH (12:55)
[2017-07-09] MEDS ORDERED: DULCOLAX-DPS10 MG PR (12:56)
[2017-07-09] MEDS ORDERED: GLUCAGON EMERGEN1 MG IM (12:56)
[2017-07-09] MEDS ORDERED: IODOSORB TP (12:57)
[2017-07-09] MEDS ORDERED: MACRODANTIN DPS50 MG PO (12:57)
[2017-07-09] MEDS ORDERED: MIRALAX PACKET17 GM PO (12:57)
[2017-07-09] MEDS ORDERED: NOVOLOG FL100 UNIT/1 SQ (12:59)
== END 2017-05-10 13:28 | disposition short-term general hospital (02) | DRG 470 ==
LOC: ER 17:25 → 5MS 18:08 → EDBD 05-10 13:28 → 5MS 05-10 13:28
PROVIDERS: ADMIT Internal Medicine
PROC: 0SRS01A Replacement of Left Hip Joint, Femoral Surface with Metal Synthetic Substitute, Uncemented, Open Approach (ICD-10-PCS; principal; 2017-05-05)
DX: S72.002A Fracture of unspecified part of neck of left femur, initial encounter for closed fracture (principal); N17.9 Acute kidney failure, unspecified; L89.159 Pressure ulcer of sacral region, unspecified stage; I11.0 Hypertensive heart disease with heart failure; E11.42 Type 2 diabetes mellitus with diabetic polyneuropathy; E11.51 Type 2 diabetes mellitus with diabetic peripheral angiopathy without gangrene; I48.1 Persistent atrial fibrillation; I50.9 Heart failure, unspecified; I49.5 Sick sinus syndrome; L89.620 Pressure ulcer of left heel, unstageable; W18.30XA Fall on same level, unspecified, initial encounter; Y92.009 Unspecified place in unspecified non-institutional (private) residence as the place of occurrence of the external cause; E11.319 Type 2 diabetes mellitus with unspecified diabetic retinopathy without macular edema; I45.10 Unspecified right bundle-branch block; N40.1 Benign prostatic hyperplasia with lower urinary tract symptoms; R33.8 Other retention of urine; I25.10 Atherosclerotic heart disease of native coronary artery without angina pectoris; M17.11 Unilateral primary osteoarthritis, right knee; E66.9 Obesity, unspecified; Z68.37 Body mass index [BMI] 37.0-37.9, adult; E78.00 Pure hypercholesterolemia, unspecified; H93.19 Tinnitus, unspecified ear; I25.2 Old myocardial infarction; E78.5 Hyperlipidemia, unspecified; Z79.4 Long term (current) use of insulin; Z86.73 Personal history of transient ischemic attack (TIA), and cerebral infarction without residual deficits; Z79.01 Long term (current) use of anticoagulants; Z95.5 Presence of coronary angioplasty implant and graft